=== PATIENT | male | born 2000 | race Hispanic/Latino ===

== ENCOUNTER 2021-12-13 10:35 | Emergency (ER) | payer OTHER, SELFPAY ==
[2021-12-13 10:37] VITALS: BP 114/72; PULSE 72; RESP 14; TEMP 35.9; O2SAT 100; BMI 24.3
--- NOTE | 2021-12-13 10:44 | DI.RAD.S_ITS ---
PROCEDURE: XR HAND LT MIN 3V INDICATIONS: cut left middle/ring finger with hedger TECHNIQUE: 3 views of the hand(s) acquired. COMPARISON: None. FINDINGS: Bones: Displaced transverse fracture of the 4th distal phalange. Soft tissues: No suspicious soft tissue calcifications. Defects noted in the tips of the 3rd and 4th fingers compatible with lacerations. IMPRESSION: 4th distal phalange fracture. Dictated by: Yessica Alvarez MD, PhD on 12/13/2021 at 11:03 Approved by: Yessica Alvarez MD, PhD on 12/13/2021 at 11:04
[2021-12-13] MEDS: ACETAMINOPHEN 325 MG TABLET 650 MG PO (11:31)
== END 2021-12-13 13:03 | disposition left against medical advice (07) ==
PROVIDERS: Emergency Provider Emergency Medicine
DX: S62.605A Fracture of unspecified phalanx of left ring finger, initial encounter for closed fracture (principal); W29.8XXA Contact with other powered hand tools and household machinery, initial encounter; Y99.0 Civilian activity done for income or pay
CPT/HCPCS: 73130; 99283